=== PATIENT | male | born 1950 | race Caucasian/White ===

== ENCOUNTER → 2016-12-15 | Day surgery (SDC) | payer MEDICARE ==
[~2016-12-15] MED LIST: AMLO5TAB2 PO; ASPI81CH37 CHEW; ATOR20TA15 PO; LACTATED RINGER'S 1000 ML INJ 1,000 ML ONE; LISI10TA PO; METO50TA PO; PANT40TA3 PO; PROPOFOL 500 MG/50 ML BTL IV ONE
--- NOTE | 2016-12-15 09:01 | GIPROC ---
[facility] [address] [place], [address] EGD PROCEDURE REPORT EXAM DATE: 12/15/2016 PATIENT NAME: Chandu Echeverria MR #: [id number] BIRTHDATE: 1950 ATTENDING: Jessie Whitaker MD ORDER #: [id number] BOX COVERER HAND: Cortez Qiu RN STATUS: outpatient INDICATIONS: The patient is a 66 yr old male here for an EGD due to history of esophageal reflux PROCEDURE PERFORMED: EGD w/ biopsy MEDICATIONS: None and Per Anesthesia. TOPICAL ANESTHETIC: CONSENT: The patient understands the risks and benefits of the procedure and understands that these risks include, but are not limited to: sedation, allergic reaction, infection, perforation and/or bleeding. Alternative means of evaluation and treatment include, among others: physical exam, x-rays, and/or surgical intervention. The patient elects to proceed with this endoscopic procedure. medical equipment was checked for proper function. Hand hygiene and appropriate measures for infection prevention was taken. After the risks, benefits and alternatives of the procedure were thoroughly explained, Informed consent was verified, confirmed and timeout was successfully executed by the treatment team. The patient was anesthetized with topical anesthesia and the EC-3490Li ([id number]) endoscope was introduced through the mouth and advanced to the second portion of the duodenum. Retroflexed views revealed no abnormalities The gastroscope was then slowly withdrawn and removed. ESOPHAGUS: There was LA Class A esophagitis noted. A biopsy was performed using cold forceps. Sample sent for histology. STOMACH: There was erythematous moderate gastritis in the gastric antrum. Multiple biopsies were performed using cold forceps. Sample sent for histology. DUODENUM: Moderate duodenal inflammation was found in the bulb and second portion of the duodenum. ADVERSE EVENTS: There were no complications. IMPRESSIONS: 1. There was LA Class A esophagitis noted; biopsy was performed 2. There was erythematous gastritis in the gastric antrum; multiple biopsies were performed 3. Duodenal inflammation was found in the bulb and second portion of the duodenum 4. Retroflexed views revealed no abnormalities RECOMMENDATIONS: 1. Await biopsy results. Biopsy results will not be ready for 7-10 days. If you don't hear from us in two weeks, call our office for biopsy results. 2. Anti-reflux regimen 3. Continue PPI 4. Avoid NSAIDS PATIENT CONDITION: stable DISPOSITION: Home REPEAT EXAM: Return 1 year EGD pending biopsy results Jessie Whitaker MD eSigned: Jessie Whitaker MD 12/15/2016 9:01 AM cc: Joey Hernandez [facility] Liv Escobar M.D.
--- NOTE | 2016-12-15 09:16 | GIPROC ---
[facility] [address] [facility] [place], [address] COLONOSCOPY PROCEDURE REPORT EXAM DATE: 12/15/2016 PATIENT NAME: Chandu Echeverria MR #: [id number] BIRTHDATE: 1950 ENDOSCOPIST: Jessie Whitaker MD ORDER #: [id number] MACHINE SAND MIXER: Cortez Qiu RN STATUS: outpatient INDICATIONS: The patient is a 66 yr old male here for a colonoscopy due to high risk patient with previously diagnosed UC pancolitis PROCEDURE PERFORMED: Colonoscopy with biopsy MEDICATIONS: None and Per Anesthesia. PREP QUALITY: The [place] Bowel Prep Score was Right colon 3, Mid colon 2, and Left colon 3. Total = 8. ESTIMATED BLOOD LOSS: None CONSENT: The patient understands the risks and benefits of the procedure and understands that these risks include, but are not limited to: sedation, allergic reaction, infection, perforation and/or bleeding. Alternative means of evaluation and treatment include, among others: physical exam, x-rays, and/or surgical intervention. The patient elects to proceed with this endoscopic procedure. medical equipment was checked for proper function. Hand hygiene and appropriate measures for infection prevention was taken. After the risks, benefits and alternatives of the procedure were thoroughly explained, Informed consent was verified, confirmed and timeout was successfully executed by the treatment team. A digital exam revealed external hemorrhoids The EC-3490Li ([id number]) endoscope was introduced through the anus and advanced to the cecum, which was identified by both the appendix and ileocecal valve. The instrument was then slowly withdrawn as the colon was fully examined. COLON FINDINGS: A polypoid shaped sessile polyp ranging between 3-5mm in size was found in the descending colon. A polypectomy was performed with cold forceps. The resection was complete and the polyp tissue was completely retrieved. Three polypoid shaped flat polyps ranging between 3-5mm in size were found in the rectum. Multiple biopsies were performed using cold forceps. The colon mucosa was otherwise normal. Multiple random biopsies of the area were performed using cold forceps. Retroflexed views revealed internal hemorrhoids and Retroflexed views revealed medium internal hemorrhoids The scope was then completely withdrawn from the patient and the procedure terminated. PROCEDURE WITHDRAWAL TIME:6minutes ADVERSE EVENTS: There were no complications. IMPRESSIONS: 1. A sessile polyp ranging between 3-5mm in size was found in the descending colon; polypectomy was performed with cold forceps 2. Three flat polyps ranging between 3-5mm in size were found in the rectum; multiple biopsies were performed using cold forceps 3. The colon mucosa was otherwise normal; multiple random biopsies of the area were performed using cold forceps 4. Retroflexed views revealed internal hemorrhoids 5. Retroflexed views revealed medium internal hemorrhoids 6. Revealed external hemorrhoids RECOMMENDATIONS: 1. Await biopsy results. Biopsy results will not be ready for 7-10 days. If you don't hear from us in two weeks, call our office for results. 2. Continue surveillance 3. Yearly hemoccult RECALL: Return 2 years Colonoscopy, pending biopsy results Jessie Whitaker MD eSigned: Jessie Whitaker MD 12/15/2016 9:16 AM cc: [facility] PATIENT NAME: Chandu Echeverria MR#: [id number]
== END | disposition home or self-care (01) ==
LOC: ESDC 06:37
PROVIDERS: ATTEND Internal Medicine Gastroenterology
DX: Z12.11 Encounter for screening for malignant neoplasm of colon (principal); K21.9 Gastro-esophageal reflux disease without esophagitis; K51.00 Ulcerative (chronic) pancolitis without complications; K64.4 Residual hemorrhoidal skin tags; D12.4 Benign neoplasm of descending colon; K62.1 Rectal polyp; K64.8 Other hemorrhoids; K20.9 Esophagitis, unspecified; K29.70 Gastritis, unspecified, without bleeding
CPT/HCPCS: 00740; 00810; 43239; 45380; 88305; 88312; J3010; J7120